=== PATIENT | male | born 1985 | race Hispanic/Latino ===

== ENCOUNTER 2022-01-23 00:25 | Emergency (ER) | payer OTHER ==
[~2022-01-23] VITALS: Ht 170.2 cm; Wt 81.2 kg
[2022-01-23 03:04] VITALS: BP 137/84
[2022-01-23] MEDS ORDERED: FLUT16H NASAL (03:09)
[2022-01-23] MEDS ORDERED: CETI10TA57 PO (03:09)
== END 2022-01-23 03:14 | disposition home or self-care (01) ==
LOC: EDH 00:25
DX: F41.0 Panic disorder [episodic paroxysmal anxiety] (principal); F43.0 Acute stress reaction; J32.9 Chronic sinusitis, unspecified; I10 Essential (primary) hypertension; Z88.1 Allergy status to other antibiotic agents; Z88.2 Allergy status to sulfonamides
CPT/HCPCS: 84484; 93005

== ENCOUNTER 2023-08-31 02:13 | Emergency (ER) | payer OTHER, SELFPAY ==
[~2023-08-31] VITALS: Ht 172.7 cm; Wt 90.7 kg
[~2023-08-31 02:13] MED LIST: CETI10TA57 PO; FLUT16H NASAL
[2023-08-31 02:27] LABS: BASOPHILS # (AUTO) 0.03 K/uL (0.00-0.20); BASOPHILS % (AUTO) 0.4 % (0.0-5.0); EOSINOPHILS # (AUTO) 0.32 K/uL (0.00-0.70); EOSINOPHILS % (AUTO) 3.9 % (0.0-8.0); HEMATOCRIT 42.3 % (42-54); IMMATURE GRANULOCYTE ABSOLUTE 0.03 K/uL (0-1); LYMPHOCYTES # (AUTO) 2.6 K/uL (1.0-4.8); MEAN CORPUSCULAR HEMOGLOBIN 30.3 pg (27.0-33.0); MEAN CORPUSCULAR HGB CONC 35.2 g/dL (32.0-36.0); MEAN CORPUSCULAR VOLUME 86.2 fL (79-99); MONOCYTES # (AUTO) 0.6 K/uL (0.1-1.0); MONOCYTES % (AUTO) 7.5 % (3.0-13.0); NEUTROPHILS # (AUTO) 4.7 K/uL (1.8-7.7); NEUTROPHILS % (AUTO) 56.8 % (40.0-77.0); PLATELET COUNT (AUTO) 231 K/uL (130-400); RED BLOOD CELL COUNT(AUTO) 4.91 MIL/uL (4.50-6.20); RED CELL DISTRIBUTION WIDTH 11.9 % (11.0-15.5); WHITE BLOOD COUNT (AUTO) 8.3 K/uL (4.8-10.8)
[2023-08-31 02:36] LABS: POTASSIUM 3.5 mmol/L (3.5-5.1)
[2023-08-31 02:38] LABS: INR 1.02 (0.85-1.15)
[2023-08-31 02:40] LABS: PARTIAL THROMBOPLASTIN TIME 25.6 SEC (26.3-35.5)
[2023-08-31 02:50] LABS: B-TYPE NATRIURETIC PEPTIDE < 5 pg/mL (0-100)
[2023-08-31 03:23] LABS: ADD UA MICROSCOPIC NO; APPEARANCE,URINE CLEAR (CLEAR); BILIRUBIN,URINE NEGATIVE (NEGATIVE); COLOR,URINE COLORLESS (YELLOW); GLUCOSE, URINE (UA) NEGATIVE (NEGATIVE); KETONES,URINE NEGATIVE (NEGATIVE); LEUKOCYTE ESTERASE ,URINE NEGATIVE Leu/uL (NEGATIVE); NITRATE,URINE NEGATIVE (NEGATIVE); OCCULT BLOOD,URINE NEGATIVE (NEGATIVE); PROTEIN,URINE NEGATIVE (NEGATIVE); UROBILINOGEN,URINE 0.2 mg/dL (0.2-1.0)
[2023-08-31 03:29] LABS: AMPHET/METH SCREEN,URINE NEGATIVE (NEGATIVE); BARBITURATE SCREEN, URINE NEGATIVE (NEGATIVE); BENZODIAZEPINES SCREEN,URINE NEGATIVE (NEGATIVE); CANNABINOID SCREEN,URINE NEGATIVE (NEGATIVE); COCAINE SCREEN,URINE NEGATIVE (NEGATIVE); OPIATE SCREEN,URINE NEGATIVE (NEGATIVE); PHENCYCLIDINE SCREEN,URINE NEGATIVE (NEGATIVE)
[2023-08-31] MEDS: 0.9%NACL 1000ML 1,000 ML IV ONE (03:30)
[2023-08-31 04:13] VITALS: BP 126/62; PULSE 73; RESP 18; O2SAT 98
== END 2023-08-31 04:15 | disposition home or self-care (01) ==
LOC: EDH 02:13
DX: F43.0 Acute stress reaction (principal); E86.0 Dehydration; D69.6 Thrombocytopenia, unspecified; Z79.899 Other long term (current) drug therapy; Z88.0 Allergy status to penicillin; Z88.1 Allergy status to other antibiotic agents; Z88.8 Allergy status to other drugs, medicaments and biological substances
CPT/HCPCS: 99285; 96360; 70450; 71045; 82550; 83721; 84484; 80048; 83880; 80305; 85025; 85610; 85730; 36415; 93005; 81003; J7030

== ENCOUNTER 2023-09-16 02:10 | Emergency (ER) | payer SELFPAY ==
[~2023-09-16] VITALS: Ht 172.7 cm; Wt 90.3 kg
[2023-09-16 03:21] VITALS: BP 120/74; PULSE 82; RESP 18; O2SAT 99
[2023-09-16] MEDS: KETOROLAC 15MG/ML VIAL (15MG/ML) IV ONE (04:40)
[2023-09-16] MEDS: PROCHLORPERAZINE 10MG/2ML INJ IV ONE (04:40)
[2023-09-16] MEDS: DiphenhydrAMINE HCL 50 MG/ML VIAL IV ONE (04:40)
[2023-09-16] MEDS ORDERED: KETO10TA2 PO (05:05)
== END 2023-09-16 05:32 | disposition home or self-care (01) ==
LOC: EDH 02:10
DX: G43.909 Migraine, unspecified, not intractable, without status migrainosus (principal); Z88.2 Allergy status to sulfonamides; Z88.8 Allergy status to other drugs, medicaments and biological substances; Z79.899 Other long term (current) drug therapy
CPT/HCPCS: 99285; 96374; 70450; 96375; J1200; J0780; J1885

== ENCOUNTER 2023-09-17 23:38 | Emergency (ER) | payer SELFPAY ==
[~2023-09-17] VITALS: Ht 172.7 cm; Wt 90.7 kg
[~2023-09-17 23:38] MED LIST changes: +KETO10TA2 PO
[2023-09-18] LABS: BASOPHILS # (AUTO) 0.04 K/uL (0.00-0.20); BASOPHILS % (AUTO) 0.6 % (0.0-5.0); EOSINOPHILS # (AUTO) 0.36 K/uL (0.00-0.70); HEMATOCRIT 38.8 % (42-54); IMMATURE GRANULOCYTE ABSOLUTE 0.02 K/uL (0-1); LYMPHOCYTES # (AUTO) 1.8 K/uL (1.0-4.8); MEAN CORPUSCULAR HEMOGLOBIN 30.7 pg (27.0-33.0); MEAN CORPUSCULAR HGB CONC 35.1 g/dL (32.0-36.0); MEAN CORPUSCULAR VOLUME 87.6 fL (79-99); MONOCYTES # (AUTO) 0.5 K/uL (0.1-1.0); MONOCYTES % (AUTO) 6.6 % (3.0-13.0); NEUTROPHILS # (AUTO) 4.5 K/uL (1.8-7.7); NEUTROPHILS % (AUTO) 62.5 % (40.0-77.0); PLATELET COUNT (AUTO) 190 K/uL (130-400); RED BLOOD CELL COUNT(AUTO) 4.43 MIL/uL (4.50-6.20); WHITE BLOOD COUNT (AUTO) 7.2 K/uL (4.8-10.8)
[2023-09-18 00:12] LABS: POTASSIUM 3.5 mmol/L (3.5-5.1)
[2023-09-18 01:10] LABS: AMPHET/METH SCREEN,URINE NEGATIVE (NEGATIVE); BARBITURATE SCREEN, URINE NEGATIVE (NEGATIVE); BENZODIAZEPINES SCREEN,URINE NEGATIVE (NEGATIVE); CANNABINOID SCREEN,URINE NEGATIVE (NEGATIVE); COCAINE SCREEN,URINE NEGATIVE (NEGATIVE); OPIATE SCREEN,URINE POSITIVE (NEGATIVE); PHENCYCLIDINE SCREEN,URINE NEGATIVE (NEGATIVE)
[2023-09-18] MEDS: KETOROLAC 15MG/ML VIAL (15MG/ML) IV ONE (01:45)
[2023-09-18 01:46] VITALS: BP 120/76; PULSE 67; RESP 16; O2SAT 96
== END 2023-09-18 02:09 | disposition home or self-care (01) ==
LOC: EDH 23:38
DX: R07.89 Other chest pain (principal); I10 Essential (primary) hypertension; Z88.2 Allergy status to sulfonamides; Z88.8 Allergy status to other drugs, medicaments and biological substances
CPT/HCPCS: 36415; 71045; 80048; 80305; 84484; 85025; 93005; J1885

== ENCOUNTER 2024-02-14 23:04 | Emergency (ER) | payer SELFPAY ==
[~2024-02-14] VITALS: Ht 172.7 cm; Wt 90.7 kg
--- NOTE | 2024-02-14 23:32 | NUR ---
PATIENT REPORTS HISTORY OF SINUS INFECTIONS X SEVERAL WEEKS, STATES HE HAS ALREADY TAKEN AUGMENTIN X 3 ROUNDS BUT SYMTPOMS ARE NOT IMPROVING. PATIENT APPEARS ANXIOUS, WORRIED ABOUT HAVING AN ANEURYSM.
--- NOTE | 2024-02-14 23:32 | ERN ---
ED Note History of Present Illness Stated Complaint: HEAD PAIN Chief Complaint: Headache Time Seen by MD: 23:08 Time Seen by Midlevel: 23:08 Dictation: The patient is a 38-year-old with no past medical history who presents to the emergency department with complaints of headache onset two days ago. Patient reports he occasionally gets blurry vision. Denies any blurry vision currently. Patient reports he was treated for sinusitis two weeks ago and finished a course of Augmentin. Denies any abdominal pain, nausea, vomiting, fevers, cough, head trauma, use of blood thinners. Allergies: Coded Allergies: ciprofloxacin (Unverified Allergy, Unknown, 01/23/22) sulfamethoxazole (Unverified Allergy, Unknown, 01/23/22) trimethoprim (Unverified Allergy, Unknown, 01/23/22) Home Meds Active Scripts Ketorolac Tromethamine (Ketorolac Tromethamine) 10 Mg Tablet, 10 MG PO BID for 5 Days, #10 TAB Prov:VIANCA WHITAKER 09/16/23 Fluticasone Propionate (Flonase Nasal [place]) 50 Mcg/[place], 1 INH NASAL BID for 5 Days, #1 INHALER 0 Refills Prov:ISIDRA VERDIN MD 01/23/22 Cetirizine HCl (Cetirizine HCl) 10 Mg Tablet, 10 MG PO DAILY, #30 TAB 0 Refills Prov:ISIDRA VERDIN MD 01/23/22 Past Medical History Past Medical History: No Pertinent History, Hypertension Surgical History: None RN Note Reviewed/Agreed w/PFSH: Yes Review of System Dictation Constitutional: Negative for fever,chills, and weight loss Eyes: Negative for injury, pain,redness, and discharge ENT: Negative for injury,pain or swelling Cardiovascular: Negative for chest pain, palpitations, and edema Respiratory: Negative for shortness of breath, cough, and wheezing, Abdomen/GI: Negative for abdominal pain, nausea, vomiting, diarrhea, and constipation Back: Negative for injury and pain : Negative for injury, bleeding and discharge MS/Extremity: Negative for injury and deformity Skin: Negative for rash, and discoloration Neuro: Negative for weakness, numbness, tingling, and seizure positive headache Psych: Negative for suicide ideation, homicidal ideation, and hallucinations Initial Vital Sign VS Vital Signs Date Time Temp Pulse Resp B/P (MAP) Pulse Ox O2 Delivery O2 Flow Rate FiO2 02/14/24 23:08 98.2 85 18 168/77 98 02/14/24 23:27 Room Air* 0 21 Physical Exam Dictation Vital Signs reviewed General Appearance: Alert, oriented x 3, no acute distress, well developed, nourished. Head and Face: non-traumatic. Eyes: PERRL, pink conjunctivas, eyelid no trauma, anterior chamber with arcus senilis. Ears: Pinnas intact and no signs of trauma or erythema ear canals clear and no discharge TM no erythema Nose: No discharge, no bleeding. Oropharynx: Mouth normal, tongue pink. pharynx clear,no erythema, tonsils no exudates, no abscesses noted, mucous membrane moist Neck: Supple, non-tender, no thyromegaly, no masses, no JVD, no bruits Breast:Deferred Chest:No tenderness, no crepitus, no paradoxical movement, no retractions Lungs:Clear, well-ventilated, symmetric, no rales, no wheezing, no rhonchi, no stridor, good breath sounds bilaterally Heart: Regular rate, regular rhythm, no murmur, no gallops Vascular: no peripheral edema, Abdomen: Soft, positive bowel sounds, nondistended, no guarding, nontender, no rebound, no masses no hepatomegaly, no splenomegaly, no Ortiz's s ign, no hernias. Rectal: Deferred Genital: Deferred Neurological: Normal speech, motor function intact, sensory function intact , no facial droop, no slurred speech, upper extremities equal in strength Musculoskeletal: Neck nontender, full range of motion, back nontender, full range of motion, Extremities: nontender, full range of motion Skin: Color pink, dry, no turgor, no rash, no lacerations, no abrasions, no contusions. Lymphatic: Deferred Results (Laboratory/Radiology) Laboratory/Radiology Laboratory Tests Test 02/14/24 23:47 White Blood Count 7.1 K/uL (4.8-10.8) Red Blood Count 4.20 MIL/uL (4.50-6.20) L Hemoglobin 13.4 g/dL (14.0-18.0) L Hematocrit 38.3 % (42-54) L Mean Corpuscular Volume 91.2 fL (79-99) Mean Corpuscular Hemoglobin 31.9 pg (27.0-33.0) Mean Corpuscular Hemoglobin Concent 35.0 g/dL (32.0-36.0) Red Cell Distribution Width 11.9 % (11.0-15.5) Platelet Count 223 K/uL (130-400) Mean Platelet Volume 9.6 fL (7.5-10.5) Immature Granulocyte % (Auto) 0.3 % (0-1) Neutrophils (%) (Auto) 62.3 % (40.0-77.0) Lymphocytes (%) (Auto) 25.9 % (21.0-51.0) Monocytes (%) (Auto) 6.9 % (3.0-13.0) Eosinophils (%) (Auto) 4.0 % (0.0-8.0) Basophils (%) (Auto) 0.6 % (0.0-5.0) Neutrophils # (Auto) 4.4 K/uL (1.8-7.7) Lymphocytes # (Auto) 1.8 K/uL (1.0-4.8) Monocytes # (Auto) 0.5 K/uL (0.1-1.0) Eosinophils # (Auto) 0.28 K/uL (0.00-0.70) Basophils # (Auto) 0.04 K/uL (0.00-0.20) Absolute Immature Granulocyte (auto 0.02 K/uL (0-1) Nucleated Red Blood Cells 0.0 % (0.0-0.19) Sodium Level 144 mmol/L (136-145) Potassium Level 4.0 mmol/L (3.5-5.1) Chloride Level 105 mmol/L (101-111) Carbon Dioxide Level 31 mmol/L (21-32) Blood Urea Nitrogen 8 mg/dL (7-18) Creatinine 1.0 mg/dL (0.5-1.3) Glomerular Filtration Rate Calc 98 mL/min (>90) Random Glucose 116 mg/dL (70-105) H Total Calcium 8.6 mg/dL (8.5-10.1) REASON: headache ORDERING PHYSICIAN: ANABELLA GABRIEL PROCEDURE: HEAD WO - CT HEAD/BRAIN W/O CONTRAST CT HEAD/BRAIN W/O CONTRAST HISTORY: Headaches COMPARISON: None TECHNIQUE: Multiple sequential axial images of the head were obtained from the base of the skull through vertex. Patient was not given contrast through intravenous route. FINDINGS: The ventricles and extraventricular CSF spaces are nondilated for patient's age. There is no midline shift, mass effect or herniation. No acute intracranial bleed is seen. Extensive ethmoid sinusitis with nasal polyposis are seen. IMPRESSION: 1. No acute intracranial bleed is seen. Extensive ethmoid sinusitis with nasal polyposis are seen. CT was performed with one or more following dose reduction techniques: automated exposure control, adjustment of the mA and kv according to patient's size, or use of a iterative reconstruction technique. Labs Reviewed?: Yes ED Course ED Course Orders Procedure Category Date Status Time Acetaminophen 500mg PHA 02/14/24 Complete Tab (Tylenol 500mg T 23:30 Cbc With Differential LAB 02/14/24 Complete 23:24 0.9%Nacl 1000ml (Ns PHA 02/14/24 Complete 1000ml) 23:30 Basic Metabolic Panel LAB 02/14/24 Complete 23:24 Ct Head/Brain W/O CT 02/14/24 Resulted Contrast 23:24 Dexamethasone 4mg/Ml PHA 02/15/24 In Process 1ml Vial (Dexametha 00:30 Current Medications Medications (Trade) Dose Ordered Sig/Molly Route PRN Reason Start Time Stop Time Status Last Admin Dose Admin Acetaminophen (TYLenol 500MG TAB) 1,000 mg ONCE ONCE PO 02/14/24 23:30 02/14/24 23:32 DC 02/14/24 23:49 Dexamethasone Sodium Phosphate (dexaMETHasone 4MG/ML 1ML VIAL) 6 mg ONCE ONCE IM 02/15/24 00:30 02/15/24 00:31 Sodium Chloride 1,000 ml @ 0 mls/hr ONCE ONCE IV 02/14/24 23:30 02/14/24 23:32 DC 02/14/24 23:50 Vital Signs Date Time Temp Pulse Resp B/P (MAP) Pulse Ox O2 Delivery O2 Flow Rate FiO2 02/14/24 23:27 99.1 90 16 163/98 97 Room Air* 0 21 02/14/24 23:08 98.2 85 18 168/77 98 Medical Decision Making [facility] The patient is a 38-year-old with no past medical history who presents to the emergency department with complaints of headache onset two days ago. Patient reports he occasionally gets blurry vision. Denies any blurry vision currently. Patient reports he was treated for sinusitis two weeks ago and finished a course of Augmentin. Denies any abdominal pain, nausea, vomiting, fevers, cough, head trauma, use of blood thinners. CBC showed no leukocytosis, mild normocytic anemia, chemistry showed no electrolyte imbalance, CT head showed no acute intracranial bleed, a sense of ethmoid sinusitis with nasal polyposis. Patient continues neurologically intact. In no acute distress. Nontoxic appearance. Will be discharged to follow up with PCP in instructed to follow up with ENT. Differential diagnosis: Sinusitis, intracerebral hemorrhage, dehydration, electrolyte imbalance, migraine headache Need for hospitalization: Patient does not meet criteria for hospitalization. There are no social concerns with this patient. DX & DISP Disposition: Discharge Departure Impression: Primary Impression: Headache Additional Impressions: Sinusitis with nasal polyps, Chronic sinusitis Condition: Stable Scripts Loratadine (Loratadine) 10 Mg Tablet 1 TAB PO DAILY for allergy symptoms for 30 Days, #30 TAB 0 Refills Prov: ANABELLA GABRIEL 02/15/24 Fluticasone Propionate (Flonase Nasal [place]) 50 Mcg/[place] 2 SPRAY NS DAILY for 30 Days, #16 GM 0 Refills Prov: ANABELLA GABRIEL 02/15/24 Additional Instructions: Please follow up with your primary doctor in 1-2 days. You will need a referral for ENT by your PCP. If symptoms worsen please return to ER. FOLLOW-UP WITH PRIMARY CARE PROVIDER IN 1 TO 2 DAYS. TAKE MEDICATIONS DIRECTED HERE IN THE EMERGENCY ROOM. OKAY TO CONTINUE HOME MEDICATIONS UNLESS OTHERWISE DISCUSSED DURING YOUR VISIT IN THE EMERGENCY ROOM TODAY. RETURN TO YOUR NEAREST EMERGENCY ROOM IF SYMPTOMS WORSEN OR IF THERE IS NO IMPROVEMENT. CALL 911 IF YOU NEED IMMEDIATE ASSISTANCE. TAKE TYLENOL OR MOTRIN [id number] NEEDED AND IF NO CONTRAINDICATIONS ARE PRESENT. INCREASE ORAL HYDRATION. A WOUND CULTURE OR URINE CULTURE WAS ORDERED HERE IN THE EMERGENCY ROOM DEPARTMENT PLEASE FOLLOW-UP WITH PRIMARY CARE PROVIDER AND ADVISE THEM TO GET REPEAT PORTS FROM OUR FACILITY. IF YOU HAD ANY KOFI WRAP/SPLINTS THAT WERE APPLIED HERE, PLEASE DO NOT REMOVE THEM UNTIL YOU SEE YOUR PRIMARY CARE OR SPECIALTY. Referrals: LEVAR JIMENEZ (PCP) Time of Disposition: 00:32 I have reviewed the case, and I agree with, Diagnosis and Plan ANABELLA GABRIEL Feb 14, 2024 23:32
[2024-02-14] MEDS: acetaMINOPHEN 500 MG TABLET PO ONE (23:49)
[2024-02-14] MEDS: 0.9%NACL 1000ML 1,000 ML IV ONE (23:50)
[2024-02-14 23:55] LABS: BASOPHILS # (AUTO) 0.04 K/uL (0.00-0.20); BASOPHILS % (AUTO) 0.6 % (0.0-5.0); EOSINOPHILS # (AUTO) 0.28 K/uL (0.00-0.70); HEMATOCRIT 38.3 % (42-54); IMMATURE GRANULOCYTE ABSOLUTE 0.02 K/uL (0-1); LYMPHOCYTES # (AUTO) 1.8 K/uL (1.0-4.8); LYMPHOCYTES % (AUTO) 25.9 % (21.0-51.0); MEAN CORPUSCULAR HEMOGLOBIN 31.9 pg (27.0-33.0); MEAN CORPUSCULAR VOLUME 91.2 fL (79-99); MONOCYTES # (AUTO) 0.5 K/uL (0.1-1.0); MONOCYTES % (AUTO) 6.9 % (3.0-13.0); NEUTROPHILS # (AUTO) 4.4 K/uL (1.8-7.7); NEUTROPHILS % (AUTO) 62.3 % (40.0-77.0); PLATELET COUNT (AUTO) 223 K/uL (130-400); RED CELL DISTRIBUTION WIDTH 11.9 % (11.0-15.5); WHITE BLOOD COUNT (AUTO) 7.1 K/uL (4.8-10.8)
--- NOTE | 2024-02-15 00:08 | HMCIMG ---
CT HEAD/BRAIN W/O CONTRAST HISTORY: Headaches COMPARISON: None TECHNIQUE: Multiple sequential axial images of the head were obtained from the base of the skull through vertex. Patient was not given contrast through intravenous route. FINDINGS: The ventricles and extraventricular CSF spaces are nondilated for patient's age. There is no midline shift, mass effect or herniation. No acute intracranial bleed is seen. Extensive ethmoid sinusitis with nasal polyposis are seen. IMPRESSION: 1. No acute intracranial bleed is seen. Extensive ethmoid sinusitis with nasal polyposis are seen. CT was performed with one or more following dose reduction techniques: automated exposure control, adjustment of the mA and kv according to patient's size, or use of a iterative reconstruction technique.
[2024-02-15] MEDS: dexaMETHasone SOD PHOSPHATE 4 MG/ML 1ML VIAL IM ONE (00:29)
[2024-02-15] MEDS ORDERED: FLUT16H NS (00:36)
[2024-02-15] MEDS ORDERED: LORA10TA7 PO (00:36)
[2024-02-15 01:09] VITALS: BP 142/88; PULSE 82; RESP 16; TEMP 98.9; O2SAT 97
== END 2024-02-15 01:11 | disposition home or self-care (01) ==
LOC: EDH 23:04
DX: R51.9 Headache, unspecified (principal); J33.9 Nasal polyp, unspecified; J32.9 Chronic sinusitis, unspecified; Z88.1 Allergy status to other antibiotic agents; Z88.2 Allergy status to sulfonamides
CPT/HCPCS: 99285; 70450; 80048; 85025; 36415; 96372; J7030; J1100; 99284

== ENCOUNTER 2024-03-18 16:53 | Emergency (ER) | payer SELFPAY ==
[~2024-03-18] VITALS: Ht 172.7 cm; Wt 90.7 kg
[~2024-03-18 16:53] MED LIST changes: +FLUT16H NS; +LORA10TA7 PO
[2024-03-18 17:46] VITALS: BP 146/80; PULSE 69; RESP 16; TEMP 98.1; O2SAT 98
[2024-03-18 18:02] LABS: BASOPHILS # (AUTO) 0.04 K/uL (0.00-0.20); BASOPHILS % (AUTO) 0.5 % (0.0-5.0); EOSINOPHILS # (AUTO) 0.42 K/uL (0.00-0.70); EOSINOPHILS % (AUTO) 4.8 % (0.0-8.0); HEMATOCRIT 40.6 % (42-54); IMMATURE GRANULOCYTE ABSOLUTE 0.03 K/uL (0-1); LYMPHOCYTES # (AUTO) 1.9 K/uL (1.0-4.8); LYMPHOCYTES % (AUTO) 21.3 % (21.0-51.0); MEAN CORPUSCULAR HEMOGLOBIN 31.3 pg (27.0-33.0); MEAN CORPUSCULAR VOLUME 89.4 fL (79-99); MONOCYTES # (AUTO) 0.6 K/uL (0.1-1.0); NEUTROPHILS # (AUTO) 5.8 K/uL (1.8-7.7); NEUTROPHILS % (AUTO) 66.1 % (40.0-77.0); PLATELET COUNT (AUTO) 233 K/uL (130-400); RED BLOOD CELL COUNT(AUTO) 4.54 MIL/uL (4.50-6.20); RED CELL DISTRIBUTION WIDTH 11.6 % (11.0-15.5); WHITE BLOOD COUNT (AUTO) 8.8 K/uL (4.8-10.8)
[2024-03-18 18:16] LABS: CREATININE 0.9 mg/dL (0.5-1.3); POTASSIUM 3.9 mmol/L (3.5-5.1)
--- NOTE | 2024-03-18 18:25 | ERN ---
General Chief Complaint: Lower Extremity Pain/Injury Stated Complaint: LEFT LEG PAIN Time Seen by MD: 17:10 Time Seen by Midlevel: 17:10 Source: patient History of Present Illness Initial Comments Patient is a 38-year-old male with a past medical history of hypertension presenting to the emergency department with left thigh pain that started this morning at approximately 5:00 a.m.. Patient states the pain woke him up from sleep. He has had the pain all day and has been unable to control the pain with [id number] medication. Denies any direct injury or trauma to the area. Denies any recent workouts. He does report having history of hypertension and was previously taking potassium supplementations and hydrochlorothiazide. He reports stopping his hydrochlorothiazide but still takes a daily potassium supplement every morning. Patient was concerned that he may have an electrolyte problem that is causing his cramping in his left upper leg. He also has a family history of blood clots so was concerned that this may be a blood clot. Allergies: Coded Allergies: ciprofloxacin (Unverified Allergy, Unknown, 01/23/22) sulfamethoxazole (Unverified Allergy, Unknown, 01/23/22) trimethoprim (Unverified Allergy, Unknown, 01/23/22) Home Meds Active Scripts Loratadine (Loratadine) 10 Mg Tablet, 1 TAB PO DAILY for allergy symptoms for 30 Days, #30 TAB 0 Refills Prov:ANABELLA GABRIEL 02/15/24 Fluticasone Propionate (Flonase Nasal [place]) 50 Mcg/[place], 2 SPRAY NS DAILY for 30 Days, #16 GM 0 Refills Prov:ANABELLA GABRIEL 02/15/24 Ketorolac Tromethamine (Ketorolac Tromethamine) 10 Mg Tablet, 10 MG PO BID for 5 Days, #10 TAB Prov:VIANCA WHITAKER 09/16/23 Fluticasone Propionate (Flonase Nasal [place]) 50 Mcg/[place], 1 INH NASAL BID for 5 Days, #1 INHALER 0 Refills Prov:ISIDRA VERDIN MD 01/23/22 Cetirizine HCl (Cetirizine HCl) 10 Mg Tablet, 10 MG PO DAILY, #30 TAB 0 Refills Prov:ISIDRA VERDIN MD 01/23/22 Past Medical History Past Medical History: No Pertinent History, Hypertension Past Surgical History: None ROS Dictation CONSTITUTIONAL: Negative except for HPI HEAD/FACE: Negative except for HPI EENT: Negative except for HPI RESPIRATORY: Negative except for HPI GASTROINTESTINAL/ABDOMINAL: Negative except for HPI GENITOURINARY: Negative except for HPI MUSCULOSKELETAL: Negative except for HPI INTEGUMENTARY: Negative except for HPI NEUROLOGICAL/PSYCH: Negative except for HPI HEMATOLOGIC/LYMPHATIC: Negative except for HPI All Systems Negative, Except as noted above. 13 point review of systems assessed and all negative except for above. Physical Exam Physical Exam Dictation Vital Signs reviewed General Appearance: Alert, oriented x 3, no acute distress, well developed, nourished. Head and Face: non-traumatic. Eyes: PERRL, pink conjunctivas, eyelid no trauma, anterior chamber with arcus senilis. Ears: Pinnas intact and no signs of trauma or erythema ear canals clear and no discharge TM no erythema Nose: No discharge, no bleeding. Oropharynx: Mouth normal, tongue pink, pharynx clear,no erythema, tonsils no exudates, no abscesses noted, mucous membrane moist Neck: Supple, non-tender, no thyromegaly, no masses, no JVD, no bruits Breast:Deferred Chest:No tenderness, no crepitus, no paradoxical movement, no retractions Lungs:Clear, well-ventilated, symmetric, no rales, no wheezing, no rhonchi, no stridor, good breath sounds bilaterally Heart: Regular rate, regular rhythm, no murmur, no gallops Vascular: no peripheral edema, Abdomen: Soft, positive bowel sounds, nondistended, no guarding, nontender, no rebound, no masses no hepatomegaly, no splenomegaly, no Ortiz's sign, no hernias. Rectal: Deferred Genital: Deferred Neurological: Normal speech, motor function intact, sensory function intact Musculoskeletal: Neck nontender, full range of motion, back nontender, full range of motion, Extremities: nontender, full range of motion Skin: Color pink, dry, no turgor, no rash, no lacerations, no abrasions, no contusions. Lymphatic: Deferred Results Laboratory and Microbiology Lab and Micro Result Laboratory Tests Test 03/18/24 17:56 White Blood Count 8.8 K/uL (4.8-10.8) Red Blood Count 4.54 MIL/uL (4.50-6.20) Hemoglobin 14.2 g/dL (14.0-18.0) Hematocrit 40.6 % (42-54) L Mean Corpuscular Volume 89.4 fL (79-99) Mean Corpuscular Hemoglobin 31.3 pg (27.0-33.0) Mean Corpuscular Hemoglobin Concent 35.0 g/dL (32.0-36.0) Red Cell Distribution Width 11.6 % (11.0-15.5) Platelet Count 233 K/uL (130-400) Mean Platelet Volume 9.5 fL (7.5-10.5) Immature Granulocyte % (Auto) 0.3 % (0-1) Neutrophils (%) (Auto) 66.1 % (40.0-77.0) Lymphocytes (%) (Auto) 21.3 % (21.0-51.0) Monocytes (%) (Auto) 7.0 % (3.0-13.0) Eosinophils (%) (Auto) 4.8 % (0.0-8.0) Basophils (%) (Auto) 0.5 % (0.0-5.0) Neutrophils # (Auto) 5.8 K/uL (1.8-7.7) Lymphocytes # (Auto) 1.9 K/uL (1.0-4.8) Monocytes # (Auto) 0.6 K/uL (0.1-1.0) Eosinophils # (Auto) 0.42 K/uL (0.00-0.70) Basophils # (Auto) 0.04 K/uL (0.00-0.20) Absolute Immature Granulocyte (auto 0.03 K/uL (0-1) Nucleated Red Blood Cells 0.0 % (0.0-0.19) Sodium Level 138 mmol/L (136-145) Potassium Level 3.9 mmol/L (3.5-5.1) Chloride Level 101 mmol/L (101-111) Carbon Dioxide Level 33 mmol/L (21-32) H Blood Urea Nitrogen 5 mg/dL (7-18) L Creatinine 0.9 mg/dL (0.5-1.3) Glomerular Filtration Rate Calc 111 mL/min (>90) Random Glucose 99 mg/dL (70-105) Total Calcium 8.6 mg/dL (8.5-10.1) Labs Reviewed?: Yes MDM MDM: Patient is a 38-year-old male with a past medical history of hypertension presenting to the emergency department with left thigh pain that started this morning at approximately 5:00 a.m.. Patient states the pain woke him up from sleep. He has had the pain all day and has been unable to control the pain with [id number] medication. Denies any direct injury or trauma to the area. Denies any recent workouts. He does report having history of hypertension and was previously taking potassium supplementations and hydrochlorothiazide. He reports stopping his hydrochlorothiazide but still takes a daily potassium supplement every morning. Patient was concerned that he may have an electrolyte problem that is causing his cramping in his left upper leg. He also has a family history of blood clots so was concerned that this may be a blood clot. On physical examination the patient has a mild tenderness overlying the medial aspect of the left upper thigh. There was no obvious signs of external trauma or swelling. Pain is reproducible with walking. He was good distal pulses with no pitting edema. His vital signs are stable. He was nontoxic appearing. He was afebrile. An ultrasound was performed to rule out DVT. Ultrasound does not reveal any acute abnormalities. His CBC and chemistries unremarkable. Potassium is normal. Lab and imaging discussed with the patient. Patient is stable for discharge at this time. Differential diagnosis: Muscle strain, DVT, fracture, contusion, electrolyte derangement, There are no social concerns with this patient. Prescription drug management Prescriptions will include: None Medical management and examination interpretation discussions were had by me with other qualified healthcare professionals as indicated for the patient's care. ED Course Orders Procedure Category Date Status Time Cbc With Differential LAB 03/18/24 Complete 17:32 Basic Metabolic Panel LAB 03/18/24 Complete 17:32 Us Venous Doppler US 03/18/24 Taken Unilateral 17:32 Vital Signs Date Time Temp Pulse Resp B/P (MAP) Pulse Ox O2 Delivery O2 Flow Rate FiO2 03/18/24 17:46 98.1 69 16 146/80 98 Room Air* 0 21 03/18/24 16:57 97.5 69 16 146/81 98 Room Air 0 DX & DISP Disposition: Discharge Departure Impression: Primary Impression: Left thigh pain Condition: Stable Additional Instructions: Your blood work today is unremarkable. Your electrolytes are normal. Your left leg ultrasound does not show any evidence of a blood clot. You will need to follow up with your primary care doctor for further evaluation. You may take Tylenol and Motrin for pain as needed. Referrals: LEVAR JIMENEZ [facility] (PCP) Time of Disposition: 18:20 I have reviewed the case, and I agree with, Diagnosis and Plan I performed the substantive portion of the visit. I have reviewed and personally made and approve the management plan that is documented in the note by myself or the YAHIR. I acknowledge for responsibility for the patient's management plan. VIANCA WHITAKER Mar 18, 2024 18:25
--- NOTE | 2024-03-18 18:48 | HMCIMG ---
ULTRASOUND VENOUS DOPPLER LEFT LOWER EXTREMITY INDICATION: Pain and swelling. TECHNIQUE: Routine grayscale and color Doppler ultrasound of the left lower extremity veins performed. COMPARISON: None. FINDINGS: The demonstrated veins of the left lower extremity including the common femoral vein, femoral vein, and popliteal vein are associated with normal compressibility, augmentation, and flow. Normal respiratory variation was identified. No evidence for echogenic intraluminal thrombus. IMPRESSION: No evidence for deep venous thrombosis.
== END 2024-03-18 18:40 | disposition home or self-care (01) ==
LOC: EDH 16:53
DX: M79.652 Pain in left thigh (principal); I10 Essential (primary) hypertension; Z79.899 Other long term (current) drug therapy; Z88.1 Allergy status to other antibiotic agents; Z88.2 Allergy status to sulfonamides
CPT/HCPCS: 36415; 80048; 85025; 93971; 99284

== ENCOUNTER 2024-05-04 01:14 | Emergency (ER) | payer SELFPAY ==
[~2024-05-04] VITALS: Ht 172.7 cm; Wt 98.0 kg
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
[2024-05-04 02:31] LABS: CREATININE 0.9 mg/dL (0.5-1.3); POTASSIUM 3.9 mmol/L (3.5-5.1)
[2024-05-04] MEDS ORDERED: CYCL10TA16 PO (03:09)
[2024-05-04 03:35] VITALS: BP 136/88; PULSE 72; RESP 16; TEMP 98.1; O2SAT 99
[2024-05-04] MEDS: CYCLOBENZAPRINE HCL 10 MG TABLET PO ONE (03:37)
--- NOTE | 2024-05-04 08:48 | HMCIMG ---
CT HEAD/BRAIN W/O CONTRAST HISTORY: Headaches COMPARISON: 05/04/2024 TECHNIQUE: Multiple sequential axial images of the head were obtained from the base of the skull through vertex. Patient was not given contrast through intravenous route. FINDINGS: The ventricles and extraventricular CSF spaces are nondilated for patient's age. There is no midline shift, mass effect or herniation. No acute intracranial bleed is seen. Visualized portion of the paranasal sinuses are grossly within normal limits. IMPRESSION: 1. No acute intracranial bleed is seen. CT was performed with one or more following dose reduction techniques: automated exposure control, adjustment of the mA and kv according to patient's size, or use of a iterative reconstruction technique.
== END 2024-05-04 03:37 | disposition home or self-care (01) ==
LOC: EDH 01:14
DX: G43.909 Migraine, unspecified, not intractable, without status migrainosus (principal); M62.838 Other muscle spasm; Z88.1 Allergy status to other antibiotic agents; Z88.2 Allergy status to sulfonamides
CPT/HCPCS: 36415; 70450; 80048; 99285